=== PATIENT | male | born 1985 | race African-American/Black ===

== ENCOUNTER 2016-08-04 10:19 | Emergency (ER) | payer OTHER ==
[~2016-08-04 10:19] MED LIST: BENTYL20 M1 PO; FLEXERIL10 MG PO; GABAPENTIN400 MG PO; NO MEDICATIONS; PHENERGAN25 M1 DOB; PHENERGAN25 M1 PO; PREDNISONE50 MG PO; PRILOSEC20 MG PO; ROBAXIN 750750 M1 PO; TYLENOL #3 PO; VOLTAREN75 MG PO; ZITHROMAX PO; ZOFRANODT PO
[2016-08-04 10:46] LABS: URINE SOURCE CLEAN CATCH
[2016-08-04 10:50] LABS: URINE APPEARANCE CLEAR; URINE BILIRUBIN NEG (NEG); URINE BLOOD NEG (NEG); URINE COLOR YELLOW; URINE GLUCOSE NEG (NORM); URINE KETONE NEG (NEG); URINE LEUKOCYTE ESTERASE NEG (NEG); URINE NITRATE NEG (NEG); URINE PROTEIN NEG (NEG); URINE SPECIFIC GRAVITY 1.025 (1.003-1.035)
[2016-08-04 10:55] LABS: MICRO INDICATED? NO
== END 2016-08-04 11:17 | disposition home or self-care (01) ==
LOC: SED 10:19
PROVIDERS: Physician Assistant Medical
DX: S39.012A Strain of muscle, fascia and tendon of lower back, initial encounter (principal); F17.210 Nicotine dependence, cigarettes, uncomplicated; X58.XXXA Exposure to other specified factors, initial encounter; Y92.9 Unspecified place or not applicable
CPT/HCPCS: 81003; 96372; 99283; J1885; J2360